=== PATIENT | female | born 1995 | race African-American/Black ===

== ENCOUNTER 2017-01-29 12:50 | Inpatient (IN) | payer OTHER ==
[~2017-01-29] VITALS: Ht 147.3 cm; Wt 51.3 kg
[~2017-01-29 12:50] MED LIST: ALBUTEROL 3 ML3 ML INH; ALBUTEROL0.09 MG/A1 INH; ALBUTEROL1.25 MG/3 INH; ALLEGRA180 MG PO; BENTYL20 MG PO; EPIPEN ADULT A0.3 MG IM; FAMOTIDINE20 M1 PO; FAMOTIDINE20 MG PO; FLEXERIL10 MG PO; IBUPROFEN600 M1 PO; MEDROL DOSEPAK1 PAC PO; NAPHCON A OPH; OMNICEF300 MG PO; ORTHO TRI-CYCLE1 TA1 PO; PATADAY2.5 ML OPH; PREDNISONE 20MG20 MG PO; PREDNISONE10 MG PO; PREDNISONE50 M1 PO; PREDNISONE50 MG PO; ROBITUSSIN W/CO10 ML PO; SYMBICORT 16010.2 GM INH; SYMBICORT 80-10.2 GM INH; SYMBICORT 80/4.1 PUF INH; TESSALON PERLE100 MG PO; TRI-PREVIFEM T1 EACH PO; VENTOLIN HFA18 GM INH; XANAX0.5 M1 PO; ZITHROMAX250 MG PO; ZOFRAN 4MG ORALL4 MG SL
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
[2017-01-29 13:47] LABS: ABSOLUTE BASOPHIL COUNT 0 /CUMM (0.0-0.2); ABSOLUTE EOSINOPHIL COUNT 0.1 /CUMM (0.0-0.7); ABSOLUTE GRANULOCYTE CT 6.6 /CUMM (1.4-6.5); ABSOLUTE LYMPH COUNT 1.3 /CUMM (1.2-3.4); ABSOLUTE MONOCYTE COUNT 0.6 /CUMM (0.10-0.60); BASOPHIL % 0.4 % (0.0-2.0); EOSINOPHIL % 0.8 % (0-5); GRANULOCYTE % 76.7 % (42.2-75.2); HEMATOCRIT 42.7 % (37-47); MEAN CORPUSCULAR HGB 28.5 PG (27.0-31.0); MEAN CORPUSCULAR HGB CONC 33.2 G/DL (33.0-37.0); MEAN CORPUSCULAR VOLUME 85.8 FL (81.0-99.0); MEAN PLATELET VOLUME 8.7 FL (7.4-10.4); PLATELET COUNT 207 /CUMM (130-400); RBC DISTRIBUTION WIDTH 13.6 % (11.5-14.5); RED BLOOD CELL CT 4.98 /CUMM (4.20-5.40); WHITE BLOOD CELL COUNT 8.6 /CUMM (4.8-10.8)
[2017-01-29] MEDS ORDERED: ALBUTEROL2.5 MG/3 M INH/SOL (14:46)
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
[2017-01-29 21:30] VITALS: BP 133/79
--- NOTE | 2017-01-29 22:16 | Admission Certification ---
Admission Certification Certification Statement - As attending physician, I certify that at the time of - admission, based on clinical presentation, severity of - symptoms, need for further diagnostic testing and - therapeutic interventions, and risk of adverse outcomes - without in-hospital treatment, in my clinical assessment, - this patient requires an acute hospital stay for a minimum - of two nights or longer. I have also considered psychsocial - factors such as support system, advanced age, financial - issues, cognitive issues, and failed out-patient treatments, - past re-admission history, safety of patient, and lack of - compliance as applicable. Specific rationale supporting this admission is: Depression and suicidal ideation.
--- NOTE | 2017-01-29 22:18 | History & Physical ---
General Information and HPI MD Statement: I have seen and personally examined MICHAEL ALVARADO and documented this H&P. The patient is a 21 year old F who presented with a patient stated chief complaint of [depression and suicidal ideation]. Source of Information: patient Exam Limitations: no limitations History of Present Illness: 21 yo F with h/o asthma, anxiety is admitted to Inpatient Psychiatry for depression and passive suicidal thoughts due to issues with her ex-boyfriend. Please refer to Psych H and P for further details. She reports her asthma has been stable, last ER visit for an exacerbation was in Jun 2016 ([facility]). She reports being admitted to [facility] for an asthma exacerbation, which was quite some time ago, and has never been intubated for the same. She follows with Dr. Livan Lozada (Db2 Developer) at [facility]. She denies chest pain, palpitations, dyspnea, GI or symptoms. She currently denies any suicidal thoughts. Allergies/Medications Allergies: Coded Allergies: nut - unspecified (Severe, ANAPHYLAXIS 01/29/17) peanut (Severe, ANAPHYLAXIS 06/18/16) Uncoded Allergies: ENVIRONMENTAL ALLERGIES (ALLERGIES TRIGGER ASTHMA 05/15/16) Home Med list Albuterol Sulfate 2.5 MG/3 ML (0.083 %) VIAL.NEB 1 Vial INH/MARVA Q4P PRN SHORTNESS OF BREATH (Reported) Albuterol Sulfate (Ventolin Hfa) 18 GM HFA.AER.AD 2 PUF INH Q4-6 PRN PRN ASTHMA Budesonide/Formoterol Fumarate (Symbicort 160-4.5 Mcg Inhaler) 10.2 GM HFA.AER.AD 2 PUF INH BID ASTHMA (Reported) Budesonide/Formoterol Fumarate (Symbicort 80-4.5 Mcg Inhaler) 10.2 GM HFA.AER.AD 2 PUF INH BID ASTHMA (Reported) Compliance With Home Meds: GOOD Past History Travel History Traveled to [place] past 21 day No Medical History Neurological: NONE EENT: allergies, ANAPHYLAXIS Cardiovascular: NONE Respiratory: asthma Gastrointestinal: NONE Hepatic: NONE Renal: NONE Musculoskeletal: NONE Psychiatric: anxiety Endocrine: NONE Blood Disorders: NONE Cancer(s): NONE 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 Paternal grandmother (Breast cancer). Psychosocial History Where do you live? Home Who Do You Live With? parent Services at Home: None Primary Language: Syriac Smoking Status: Never Smoked ETOH Use: occasional use Illicit Drug Use: denies illicit drug use Functional Ability ADLs Independent: dressing, eating, toileting, bathing. 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 Review of Systems Review of Systems Constitutional: Denies: chills, fever, malaise, weakness. EENTM: Reports: no symptoms. Cardiovascular: Denies: chest pain, orthopena, palpitations. Respiratory: Denies: cough, short of breath, sputum production, wheezing. GI: Denies: abdominal pain, diarrhea, nausea, vomiting. Genitourinary: Reports: no symptoms. Musculoskeletal: Reports: no symptoms. Skin: Reports: no symptoms. Neurological/Psychological: Reports: see HPI. All Other Systems: Reviewed and Negative Exam & Diagnostic Data Last 24 Hrs of Vital Signs/I&O Vital Signs Date Time Temp Pulse Resp B/P Pulse O2 O2 Flow FiO2 Ox Delivery Rate 01/29 1504 97.9 98 18 112/69 98 Room Air 01/29 1410 98.2 01/29 1330 99 Room Air 01/29 1254 97.7 01/29 1253 105 102/66 94 Room Air Intake & Output 01/29 1600 01/29 0800 01/29 0000 Intake Total Output Total Balance Patient 125 lb Weight Physical Exam General Appearance Alert, Oriented X3, Cooperative, No Acute Distress Skin No Rashes, No Breakdown HEENT Atraumatic, PERRLA, EOMI, Mucous Membr. moist/pink Neck Supple Cardiovascular Regular Rate, Normal S1, Normal S2, No Murmurs Lungs Clear to Auscultation, Normal Air Movement Abdomen Normal Bowel Sounds, Soft, No Tenderness Neurological Exam Findings: Normal Gait, Normal Speech, Strength at 5/5 X4 Ext, Cranial Nerves 3-12 NL, Reflexes 2+ Cranial Nerves II through XII: Grossly intact Extremities No Edema, Normal Pulses, No Tenderness/Swelling Vascular Normal Pulses, Pulses Symmetrical Last 24 Hrs of Labs/Ferny: Laboratory Tests 01/29/17 1415: Urine Opiates Screen < 100.00, Methadone Screen < 40, Barbiturate Screen < 60, Ur Phencyclidine Scrn < 6.00, Amphetamines Screen < 100, U Benzodiazepines Scrn < 85, Urine Cocaine Screen < 50, Urine Cannabis Screen < 5.00 01/29/17 1325: Anion Gap 11, Estimated GFR > 60, BUN/Creatinine Ratio 18.6, Glucose 86, Calcium 9.7, Total Bilirubin 1.1, AST 17, ALT 27, Alkaline Phosphatase 54, Total Protein 7.6, Albumin 4.2, Globulin 3.4, Albumin/Globulin Ratio 1.2, Total Beta HCG NEGATIVE, CBC w Diff NO MAN DIFF REQ, RBC 4.98, MCV 85.8, MCH 28.5, RDW 13.6, MPV 8.7, Gran % 76.7 H, Lymphocytes % 15.1 L, Monocytes % 7.0, Eosinophils % 0.8, Basophils % 0.4, Absolute Granulocytes 6.6 H, Absolute Lymphocytes 1.3, Absolute Monocytes 0.6, Absolute Eosinophils 0.1, Absolute Basophils 0, PUBS MCHC 33.2, Serum Alcohol < 10.0 01/29/17 1306: Urine Test Cancelled Diagnostic Data EKG Results -- CXR Results -- Assessment/Plan Assessment: 21 yo F admitted to Inpatient Psychiatry for depression and passive suicidal thoughts. Will defer management to Psychiatrist. For her asthma, we will continue symbicort and albuterol as needed. DVT prophylaxis - low risk, early ambulation. As Ranked By This Provider Problem List: 1. Asthma 2. Major depressive disorder Miscellaneous Miscellaneous Documentation Attending Case Discussed With: JOSE VALENZUELA,NORA Primary Care Physician: PATIENT HAS NO PRIMARY CARE DR Patient sees these Specialists Dr. Livan lozada (Db2 Developer at [facility]) Level of Patient Care: ALBERT Mcgill Attending Review Statement Attending Statement Attending MD Statement: examined this patient
[2017-01-30 07:47] VITALS: BP 133/91
[2017-01-30 11:59] VITALS: BP 121/84
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
[2017-01-30 15:50] VITALS: BP 100/59
[2017-01-30 20:09] VITALS: BP 124/80
[2017-01-31 07:58] VITALS: BP 118/71
[2017-01-31 12:30] VITALS: BP 136/82
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
[2017-01-31 16:01] VITALS: BP 104/72
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
[2017-01-31 19:37] VITALS: BP 97/72
[2017-02-01 07:33] VITALS: BP 119/72
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
--- NOTE | 2017-02-01 17:05 | DISCHARGE SUMMARY REPORT-PSYCH ---
Visit Information Visit Dates/Diagnosis' Admission Date: 01/29/17 Discharge Date: 02/01/17 Reason for Admission: "I just wanted to clear my head." Psy Discharge Primary Diag: Adjustment Disorder (depressed/nonsuicidal) Psy Discharge Secondary Diag: hx of Asthma Hospital Course Significant Lab Findings: glucose = 86; WBC = 8.6, lymph = 15.1%, gran = 76.7%, gran abs = 6.6%; ROXANNE = less than 10.0; urine for drugs of abuse--negative (for details of all normal range laboratory data, see the electronic medical record) Course Complications: none Consultations: patient was seen for an admission medical H&P by Konrad Lester M.D., and followed medically during this [facility] by [facility] medical attending staff; there were no other consultation during admission Allergies: Coded Allergies: nut - unspecified (Severe, ANAPHYLAXIS 01/29/17) peanut (Severe, ANAPHYLAXIS 06/18/16) Uncoded Allergies: ENVIRONMENTAL ALLERGIES (ALLERGIES TRIGGER ASTHMA 05/15/16) Hospital Course/TX Response: Patient rapidly improved on [facility], consistently denying active suicidal or homicidal ideation in hospital, or prior to admission; she had been upset over break-up with an unfaithful boyfriend who had gotten her (she had an elective in 12/2016) but was not contemplating any violent action. Patient's affect and mood rapidly improve, and she did not require any regular or PRN psychotropic medication during her stay. At time of discharge, patient was euthymic and eager to get back to work and school while continuing to reside happily with her mother. Patient displayed no ambivalence with regard to permanently terminating relationship with boyfriend. Discharge HBIPS - Tobacco Use Treatment Offered Post DC Medications Offered: NA-No Tob Use >30 days Post DC Tobacco Treatment Plan: NA-No Tobacco use >30days - EtOH/Drug Use D/O Treatment Offered Post DC Medications Offered: NA-No EtOH/Drug Use D/O Post DC EtOH/SubAbuse TX Plan: NA-No EtOH/Drug Use D/O Metabolic Screening - Screen if on a Neuroleptic Medication - Metabolic screening should include: - Blood Pressure, BMI, Glucose or Hgb A1c, & a - Lipid profile from within the past 365 days. Metabolic Screening ([X]) Not Applicable, patient not on a neuroleptic. OR () Patient on a neuroleptic(s) . Enter below results for Glucose or Hemoglobin A1C, and lipid panel if obtained during the last 365 days. BMI: 23.600 Blood Pressure: 119/72 Laboratory Results (If applicable): Discharge Instructions General Discharge Information Discharge Medications: Discharge Medications (dose, route, frequency, indications): none Multiple Neuroleptics: ([X]) Not Applicable OR Document below three failed attempts at monotherapy, or a plan to taper to monotherapy, or augmentation of Clozapine. () Patient's Diet: regular Patient's Activity: without restrictions DC Disposition: to return home with mother Recommendations: I went over with patient the symptoms of clinical depression and warned her that despite her being symptom-free at time of discharge she might be vulnerable to a depressive episode in the coming months and the increased relative risks of this occurring given the physiologic effects of her and its termination ( "post-" depression). Referred To: Patient was referred directly to [facility], beginning 02/05/2017 at 1pm. She was also informed about the availability of the services of [facility] and how to access them, if needed. Copies To: AUGUSTO MAN LCSW
== END 2017-02-01 12:58 | DRG 754 ==
LOC: ERH 12:50 → CP SOUTH 17:13 → ERHI 17:13 → CP SOUTH 20:55
PROVIDERS: Physician Assistant; ADMIT Psychiatry & Neurology Addiction Medicine
DX: F43.21 Adjustment disorder with depressed mood (principal); J45.909 Unspecified asthma, uncomplicated
CPT/HCPCS: 80307; 81025; G0480; J3490

== ENCOUNTER 2017-03-07 20:07 | Emergency (ER) | payer OTHER ==
[~2017-03-07 20:07] MED LIST changes: +ALBUTEROL2.5 MG/3 M INH/SOL
--- NOTE | 2017-03-07 20:35 | ED GI/GU/ABDOMINAL COMPLAINT ---
History of Present Illness General Chief Complaint: Abdominal Pain/Flank Pain Stated Complaint: ABD PAIN, VOMITING PER PT Source: patient Exam Limitations: no limitations Vital Signs & Intake/Output Vital Signs & Intake/Output Vital Signs Date Time Temp Pulse Resp B/P B/P Pulse O2 O2 Flow FiO2 Mean Ox Delivery Rate 03/07 2011 98.5 88 20 121/74 Allergies Coded Allergies: nut - unspecified (Severe, ANAPHYLAXIS 01/29/17) peanut (Severe, ANAPHYLAXIS 06/18/16) Uncoded Allergies: ENVIRONMENTAL ALLERGIES (ALLERGIES TRIGGER ASTHMA 05/15/16) Reconcile Medications Albuterol Sulfate 2.5 MG/3 ML (0.083 %) VIAL.NEB 1 Vial INH/MARVA Q4P PRN SHORTNESS OF BREATH (Reported) Albuterol Sulfate (Ventolin Hfa) 18 GM HFA.AER.AD 2 PUF INH Q4-6 PRN PRN ASTHMA Budesonide/Formoterol Fumarate (Symbicort 80-4.5 Mcg Inhaler) 10.2 GM HFA.AER.AD 2 PUF INH BID ASTHMA (Reported) Budesonide/Formoterol Fumarate (Symbicort 160-4.5 Mcg Inhaler) 10.2 GM HFA.AER.AD 2 PUF INH BID ASTHMA (Reported) Dicyclomine Hydrochloride (Bentyl) 10 MG CAPSULE 1 CAP PO TID abd pain Ondansetron (Zofran Odt) 4 MG TAB.RAPDIS 1 TAB SL TID nausea Triage Note: PER PT ABD PAIN SOINCE THIS AFTERNOON ASSOC WITH VOMITTING X 6 AND DIARRHEA. CURRENTLY ON MENSES. Triage Nurses Notes Reviewed? yes ? N Is pt currently ? No Onset: Gradual Duration: hour(s): (2) Timing: remote history Quality/Severity: cramping, vomiting Severity Numbers: 8 Location: suprapubic Radiation: no radiation Activities at Onset: none Prior Abdominal Problems: similar symptoms Sexually Active: Yes Last Time You Were Sexual: less than 2 months ago Sexual Orientation: Heterosexual No Modifying Factors: none HPI: Patient is a 21-year-old female with history of asthma, recent D&C in December presenting to the emergency department with chief complaint of lower bowel pain that started approximately 2 hours prior to arrival. She describes the pain as cramping in nature. She's had associated nausea vomiting and diarrhea as well for the past 2 hours. She had mild cramping earlier in the day which is consistent with her normal menstrual cramping. Denies any fevers or chills. Denies trying to take anything by mouth after onset of symptoms. No sick contacts or recent travel. Denies recent antibiotic use. She reports that after she had the D&C in December a few days after she developed a fever which eventually subsided. No issues since then. Denies any urinary frequency or urgency or dysuria. No hematuria. Denies any blood in stool or the vomit. (MOOK FLORES) Past History Travel History Traveled to [place] past 21 day No Medical History Any Pertinent Medical History? see below for history Neurological: NONE EENT: allergies Cardiovascular: NONE Respiratory: asthma Gastrointestinal: NONE Hepatic: NONE Renal: NONE Musculoskeletal: NONE Psychiatric: anxiety Endocrine: NONE Blood Disorders: NONE Cancer(s): NONE FITTING SUPERVISOR/Reproductive: OVARIAN CYST History of MRSA: No History of VRE: No History of CDIFF: No Influenza Vaccine: 09/24/11 Surgical History Surgical History: appendectomy Psychosocial History Who do you live with Mother Services at Home None What is your primary language Slovenian Tobacco Use: Never used Family History Family History, If Any: Maternal grandfather (Stroke). Paternal grandmother (Breast cancer). Hx Contributory? No (MOOK FLORES) Review of Systems Review of Systems Constitutional: Reports: no symptoms. Comments Review of systems: See HPI, All other systems negative. Constitutional, no chills fever or weight loss HEENT: No visual changes no sore throat no congestion Cardiovascular: No chest pain ,palpitation , orthopnea or ankle swelling Skin, no jaundice no rashes Respiratory: No dyspnea cough sputum or hemoptysis GI: Positive nausea, vomiting, diarrhea : No dysuria No hematuria Muscle skeletal: no back pain, no neck pain, Neurologic: No numbness no confusion Psych: No stress anxiety or depression,. Heme/endocrine: No bruising no bleeding no polyuria or polydipsia Immunology: No splenectomy or history of AIDS (MOOK FLORES) Physical Exam Physical Exam General Appearance: alert, awake, anxious, mild distress Gastrointestinal: normal bowel sounds, soft, tenderness Comments: Well-developed well-nourished person in no acute distress HEENT: . Nose is atraumatic. Pharynx normal. No swelling or edema. Moist oromucosa. Neck: Supple, no lymphadenopathy, normal range of motion without pain or tenderness Back: Nontender, no CVA tenderness. Cardiovascular: Regular rate and rhythms no murmurs rubs or gallops, normal JVP Respiratory: Chest nontender. No respiratory distress.breath sounds clear to auscultation bilaterally Abdomen: Soft, tentative palpation in the suprapubic region bilaterally, mild guarding, no rebound tenderness, nondistended, no appreciable organomegaly. Normal bowel sounds. No ascites Extremity: No edema Neuro: Alert oriented x3 Skin: No appreciable rash on exposed skin, skin is warm and dry. Psych: Anxious Core Measures ACS in differential dx? No Severe Sepsis Present: No Septic Shock Present: No (ETHEL SAMUEL,MOOK) Progress Differential Diagnosis: biliary colic, bowel obstruction, diverticulitis, ectopic , gastritis, hepatitis, ischemic bowel, ovarian cyst, ovarian torsion, pancreatitis, UTI/pyelo, OVARIAN TORSION, OVARIAN CYSTS, PANCREATITIS, DEHYDRATION, ELECTROLYTE ABNORMALITY Plan of Care: Orders Procedure Date/time Status URINE 03/07 2029 Complete URINALYSIS 03/07 2029 Complete LIPASE 03/07 2029 Complete LACTIC ACID 03/07 2029 Complete COMPREHENSIVE METABOLIC PANEL 03/07 2029 Complete CBC WITHOUT DIFFERENTIAL 03/07 2029 Complete Laboratory Tests 03/07/172221: Urinalysis MANY H, Urine Color YEL, Urine Clarity CLDY H, Urine pH 5.5, Ur Specific [place] >= 1.030, Urine Protein 30 H, Urine Ketones 15 H, Urine Nitrite NEG, Urine Bilirubin NEG, Urine Urobilinogen 0.2, Ur Leukocyte Esterase NEG, Ur Microscopic SEDIMENT EXAMINED, Urine RBC 1-3, Urine WBC 1-3 H, Ur Epithelial Cells FEW, Urine Bacteria FEW H, Urine Mucus FEW, Urine Hemoglobin MOD H, Urine Glucose NEG, Urine Test NEGATIVE 03/07/172045: Anion Gap 13, Estimated GFR > 60, BUN/Creatinine Ratio 27.5 H, Glucose 86, Lactic Acid 0.7, Calcium 9.3, Total Bilirubin 0.8, AST 19, ALT 30, Alkaline Phosphatase 45, Total Protein 7.5, Albumin 4.3, Globulin 3.2, Albumin/Globulin Ratio 1.3, Lipase 313 H, CBC w Diff NO MAN DIFF REQ, RBC 4.88, MCV 86.3, MCH 28.5, RDW 13.8, MPV 8.5, Gran % 62.9, Lymphocytes % 25.3, Monocytes % 8.1, Eosinophils % 3.3, Basophils % 0.4, Absolute Granulocytes 6.4, Absolute Lymphocytes 2.6, Absolute Monocytes 0.8 H, Absolute Eosinophils 0.3, Absolute Basophils 0, PUBS MCHC 33.1 Diagnostic Imaging: Viewed by Me: Ultrasound. Discussed w/RAD: Ultrasound. Radiology Impression: SERVICE DATE: 03/07/17 EXAM TYPE: US - US- TRANSVAGINAL EXAMINATION: US TRANSVAGINAL CLINICAL INFORMATION: Abdominal and pelvic pain COMPARISON: None TECHNIQUE: Transvaginal imaging by the tin flipper FINDINGS: The uterus is 6.7 x 3.4 x 4.4 cm. Endometrial canal 3 mm normal. Cervical length 2.6 cm. The right ovary is 2.8 x 3.4 x 2.2 cm. Volume 10.7 mL normal appearing. Left ovary is 3 x 2.6 x 2 cm. Volume 80 mL. Normal- appearing. Normal ovarian vascularity bilaterally. No free fluid or obvious adnexal mass. IMPRESSION: Unremarkable transabdominal pelvic ultrasound. Ovaries are normal appearing with normal Ovarian flow. No free fluid or obvious adnexal mass. Initial ED EKG: none Hand-Off Endorsed To: MARIELLA BARGER Endorsed Time: 2100 Pending: labs, ultrasound Comments: 03/07/2017 8:40:38 PM on arrival patient is afebrile in mild distress with reproducible pain in the suprapubic region bilaterally. Patient reports an onset of nausea vomiting and diarrhea. Sounds very viral, cannot exclude ovarian torsion as patient does have history of ovarian cysts. Initial over transvaginal ultrasound to rule out torsion. We'll obtain blood work to check electrolytes. Patient be hydrated with fluids, given Toradol for pain and Zofran for nausea. 03/07/2017 9:01:16 PM patient will be signed out to JIMMIE Santiago pending lab work and reevaluation of patient once patient is medicated. (MOOK FLORES) Radiology Impression: SERVICE DATE: 03/07/17 EXAM TYPE: US - US- TRANSVAGINAL EXAMINATION: US TRANSVAGINAL CLINICAL INFORMATION: Abdominal and pelvic pain COMPARISON: None TECHNIQUE: Transvaginal imaging by the tin flipper FINDINGS: The uterus is 6.7 x 3.4 x 4.4 cm. Endometrial canal 3 mm normal. Cervical length 2.6 cm. The right ovary is 2.8 x 3.4 x 2.2 cm. Volume 10.7 mL normal appearing. Left ovary is 3 x 2.6 x 2 cm. Volume 80 mL. Normal- appearing. Normal ovarian vascularity bilaterally. No free fluid or obvious adnexal mass. IMPRESSION: Unremarkable transabdominal pelvic ultrasound. Ovaries are normal appearing with normal Ovarian flow. No free fluid or obvious adnexal mass. (MARIELLA BARGER) Departure Departure Disposition: HOME OR SELF CARE Condition: Stable Clinical Impression Primary Impression: Nausea and vomiting Qualifiers: Vomiting type: unspecified Vomiting Intractability: non-intractable Qualified Code: R11.2 - Nausea with vomiting, unspecified Secondary Impressions: Diarrhea Qualifiers: Diarrhea type: unspecified type Qualified Code: R19.7 - Diarrhea, unspecified Referrals: PATIENT HAS NO PRIMARY CARE DR (PCP/Family) Departure Forms: Customer Survey General Discharge Information (MOOK FLORES) Departure Additional Instructions: Take Bentyl and Zofran ODT as prescribed. Follow-up with your primary care doctor. Return if any concerns. Drink plenty of fluids. Please go over all results of today's visit with your primary care doctor. Contact your primary care doctor to let them know you were here in the emergency room. There may be nonspecific findings which may not be related to your visit today here in the emergency room but may require further evaluation and chronic monitoring by your primary care doctor. If you had a laceration today the chance of foreign body always remains. You should follow-up with your primary care doctor for recheck in 3-5 days for a wound check. If you had an x-ray done there is a chance that a fracture could have been missed on initial read and you should follow-up with your primary care doctor for repeat x-rays if symptoms persist. If your blood pressure was elevated here in the emergency room please have rechecked by her primary care doctor within the next 48 hours by your primary care doctor. If you were prescribed a narcotic here in the emergency room or any type of controlled substances you're not allowed to drive while taking this medication or operate any type of heavy machinery. Narcotics can make you feel lightheaded dizziness nausea and can cause constipation. You may need to picking supervisor a stool softener. Thank you for choosing [facility] emergency room. Please return to the emergency room immediately if you have any other concerns worsening of symptoms. Prescriptions: Current Visit Scripts Ondansetron (Zofran Odt) 1 TAB SL TID #10 TAB Dicyclomine Hydrochloride (Bentyl) 1 CAP PO TID #20 CAP (MARIELLA BARGER) PA/ANGLE SHEAR OPERATOR Co-Sign Statement Statement: ED Attending supervision documentation- [] I saw and evaluated the patient. I have also reviewed all the pertinent lab results and diagnostic results. I agree with the findings and the plan of care as documented in the PA's/ANGLE SHEAR OPERATOR's documentation. [X] I have reviewed the ED Record and agree with the PA's/ANGLE SHEAR OPERATOR's documentation. [] Additions or exceptions (if any) to the PAs/ANGLE SHEAR OPERATOR's note and plan are summarized below: [] (MARY VALENZUELA,KENDALL Godoy)
[2017-03-07 20:52] LABS: ABSOLUTE BASOPHIL COUNT 0 /CUMM (0.0-0.2); ABSOLUTE EOSINOPHIL COUNT 0.3 /CUMM (0.0-0.7); ABSOLUTE GRANULOCYTE CT 6.4 /CUMM (1.4-6.5); ABSOLUTE LYMPH COUNT 2.6 /CUMM (1.2-3.4); ABSOLUTE MONOCYTE COUNT 0.8 /CUMM (0.10-0.60); BASOPHIL % 0.4 % (0.0-2.0); EOSINOPHIL % 3.3 % (0-5); GRANULOCYTE % 62.9 % (42.2-75.2); HEMATOCRIT 42.2 % (37-47); MEAN CORPUSCULAR HGB 28.5 PG (27.0-31.0); MEAN CORPUSCULAR HGB CONC 33.1 G/DL (33.0-37.0); MEAN CORPUSCULAR VOLUME 86.3 FL (81.0-99.0); MEAN PLATELET VOLUME 8.5 FL (7.4-10.4); PLATELET COUNT 193 /CUMM (130-400); RBC DISTRIBUTION WIDTH 13.8 % (11.5-14.5); RED BLOOD CELL CT 4.88 /CUMM (4.20-5.40); WHITE BLOOD CELL COUNT 10.2 /CUMM (4.8-10.8)
--- NOTE | 2017-03-07 21:37 | ULTRASOUND REPORT ---
EXAMINATION: US TRANSVAGINAL CLINICAL INFORMATION: Abdominal and pelvic pain COMPARISON: None TECHNIQUE: Transvaginal imaging by the ancillary services manager FINDINGS: The uterus is 6.7 x 3.4 x 4.4 cm. Endometrial canal 3 mm normal. Cervical length 2.6 cm. The right ovary is 2.8 x 3.4 x 2.2 cm. Volume 10.7 mL normal appearing. Left ovary is 3 x 2.6 x 2 cm. Volume 80 mL. Normal-appearing. Normal ovarian vascularity bilaterally. No free fluid or obvious adnexal mass. IMPRESSION: Unremarkable transabdominal pelvic ultrasound. Ovaries are normal appearing with normal Ovarian flow. No free fluid or obvious adnexal mass.
[2017-03-07] MEDS ORDERED: ZOFRAN ODT4 M1 SL (22:48)
[2017-03-07] MEDS ORDERED: BENTYL10 M1 PO (22:48)
[2017-03-07 23:13] VITALS: BP 120/74
== END 2017-03-07 23:14 ==
LOC: ERH 20:07
PROVIDERS: Physician Assistant
DX: R11.2 Nausea with vomiting, unspecified (principal); R19.7 Diarrhea, unspecified
CPT/HCPCS: 81001; 81025; 96374; 96375; J1885; J2405

== ENCOUNTER 2017-04-03 21:12 | Emergency (ER) | payer OTHER ==
[~2017-04-03] VITALS: Ht 147.3 cm; Wt 49.9 kg
[~2017-04-03 21:12] MED LIST changes: +BENTYL10 M1 PO; +ZOFRAN ODT4 M1 SL
[2017-04-03 21:36] VITALS: BP 108/73
[2017-04-03] MEDS ORDERED: BROMFED DM COU118 M1 PO (22:20)
[2017-04-03] MEDS ORDERED: ALBUTEROL2.5 MG/3 M INH/SOL (22:20)
[2017-04-03] MEDS ORDERED: SYMBICORT 80-10.2 GM INH (22:20)
[2017-04-03] MEDS ORDERED: PROAIR HFA8.5 GM INH (22:20)
--- NOTE | 2017-04-03 22:20 | ED DYSPNEA/ASTHMA COMPLAINT ---
History of Present Illness General Chief Complaint: Wheezing/Asthma Stated Complaint: NEEDS ASTHMA TREATMENT, RAN OUT OF MEDS Source: patient, old records Exam Limitations: no limitations Vital Signs & Intake/Output Vital Signs & Intake/Output Vital Signs Date Time Temp Pulse Resp B/P B/P Pulse O2 O2 Flow FiO2 Mean Ox Delivery Rate 04/038 99 04/036 98.8 86 24 108/73 97 Room Air Allergies Coded Allergies: nut - unspecified (Severe, ANAPHYLAXIS 04/03/17) peanut (Severe, ANAPHYLAXIS 04/03/17) Uncoded Allergies: ENVIRONMENTAL ALLERGIES (ALLERGIES TRIGGER ASTHMA 05/15/16) Reconcile Medications Albuterol Sulfate 2.5 MG/3 ML (0.083 %) VIAL.NEB 1 Vial INH/MARVA Q4P PRN SHORTNESS OF BREATH (Reported) Albuterol Sulfate (Ventolin Hfa) 18 GM HFA.AER.AD 2 PUF INH Q4-6 PRN PRN ASTHMA Albuterol Sulfate (Proair Hfa) 90 MCG HFA.AER.AD 2 PUF INH Q4-6 PRN PRN asthma Albuterol Sulfate 2.5 MG/3 ML (0.083 %) VIAL.NEB 1 Vial INH/MARVA Q4P PRN wheezing Brompheniramine/Pseudoephed/Dm (Bromfed Dm Cough Syrup) 2 MG-30 MG-10 MG/5 ML SYRUP 10 ML PO Q4-6 PRN PRN cough Budesonide/Formoterol Fumarate (Symbicort 80-4.5 Mcg Inhaler) 10.2 GM HFA.AER.AD 2 PUF INH BID ASTHMA (Reported) Budesonide/Formoterol Fumarate (Symbicort 160-4.5 Mcg Inhaler) 10.2 GM HFA.AER.AD 2 PUF INH BID ASTHMA (Reported) Budesonide/Formoterol Fumarate (Symbicort 80-4.5 Mcg Inhaler) 80 MCG-4.5 MCG/ ACTUATION HFA.AER.AD 2 PUF INH BID asthma Dicyclomine Hydrochloride (Bentyl) 10 MG CAPSULE 1 CAP PO TID abd pain Ondansetron (Zofran Odt) 4 MG TAB.RAPDIS 1 TAB SL TID nausea Triage Note: TRIAGE: PT TO ER WITH FRIEND C/C ASTHMA FLARE UP. RAN OUT OF INHALERS/NEBULIZERS 1 WK AGO. COMPLAINS OF CHEST PAIN ONLY WITH COUGHING. HAS DRY COUGH AT TRIAGE. Triage Nurses Notes Reviewed? yes Onset: Gradual Duration: day(s): (2), constant Timing: recent history Severity: mild, moderate Activities at Onset: activity Prior Episodes/Possible Cause: frequent episodes Associated Symptoms: cough : No Patient currently breastfeeds: No HPI: 21-year-old female with history of asthma presents requesting a breathing treatment. She states she ran out of her nebulizer machine and inhalers last week. She states for the past 3 days she's had chest tightness and wheezing and a nonproductive cough. No fever no chills. The patient denies abdominal pain nausea vomiting sore throat and rhinorrhea congestion no modifying factors or associated symptoms otherwise. She does not smoke. (ВИАН KAUR) Past History Travel History Traveled to [place] past 21 day No Medical History Any Pertinent Medical History? see below for history Neurological: NONE EENT: allergies Cardiovascular: NONE Respiratory: asthma Gastrointestinal: NONE Hepatic: NONE Renal: NONE Musculoskeletal: NONE Psychiatric: anxiety Endocrine: NONE Blood Disorders: NONE Cancer(s): NONE REPAIRER SHOE STICKS/Reproductive: OVARIAN CYST History of MRSA: No History of VRE: No History of CDIFF: No Surgical History Surgical History: appendectomy Psychosocial History Who do you live with Mother Services at Home None What is your primary language Grenadian Tobacco Use: Never used ETOH Use: occasional use Illicit Drug Use: denies illicit drug use Family History Family History, If Any: Maternal grandfather (Stroke). Paternal grandmother (Breast cancer). Hx Contributory? No (ИВАН KAUR) Review of Systems Review of Systems Constitutional: Reports: see HPI. All Other Systems: Reviewed and Negative Comments Review of systems: See HPI, All other systems negative. Constitutional, no chills no fever, no malaise HEENT: no sore throat no congestion, no ear pain Cardiovascular: No chest pain , no palpitation , no orthopnea Skin: no rashes, no change in skin Respiratory: dyspnea cough no sputum no hemoptysis GI: No nausea no vomiting, no diarrhea, no bloating/constipation : No dysuria No hematuria, Muscle skeletal: No joint pain, no joint swelling, no back pain, no neck pain, Neurologic: no headache Psych: No stress Heme/endocrine: No bruising Immunology: No lymphadenopathy (ИВАН KAUR) Physical Exam Physical Exam General Appearance: well developed/nourished, no apparent distress, alert, awake Respiratory: wheezing (int expiratory wheeze) Comments: Well-developed well-nourished patient in no apparent distress. HEENT: Atraumatic, extraocular motion intact pharynx is normal limits no rhinorrhea no congestion Neck: Supple, FROM Back: FROM Cardiovascular: Regular rate and rhythms no murmurs rubs or gallops, Respiratory: Chest nontender.There were no bony deformities, no asymmetry. No respiratory distress. Patient speaking in full complete sentences. Intermittent bilateral expiratory wheeze Extremities: full range of motion Neuro: awake, alert, and oriented to person, place and time. There were no obvious focal neurologic abnormalities. Skin: Warm & dry;No appreciable rash on exposed skin Psych: Mood affect normal, normal memory normal judgment. Core Measures ACS in differential dx? No Severe Sepsis Present: No Septic Shock Present: No (ИВАН KAUR) Progress Differential Diagnosis: asthma, bronchitis, pericarditis, pneumonia, pneumothorax Plan of Care: Current Medications Sig/Celestina Start time Last Medication Dose Stop Time Status Admin Albuterol Sulfate 3 ML ONCE ONE 04/03 2215 UNVr (Proventil) 04/03 2216 Ipratropium [place] 2.5 ML ONCE ONE 04/03 2215 UNVr (Atrovent) 04/03 2216 DuoNeb ordered Patient with improvement in symptoms after breathing treatment I discussed with the patient at length all of their results. I had an extensive conversation regarding need for close follow up with their primary care physician this week as well as return precautions. I answered all of their questions, they feel comfortable with the plan and follow-up care. I discussed with the patient/family the medications that they will receive. I gave them signs and symptoms that could indicate an adverse reaction. I have advised them to limit their activities until they can see how they respond to the medication. (ИВАН KAUR) Initial ED EKG: none (ИВАН KAUR) Departure Departure Time of Disposition: 2214 Disposition: HOME OR SELF CARE Condition: Stable Clinical Impression Primary Impression: Asthma exacerbation Referrals: PATIENT HAS NO PRIMARY CARE DR (PCP/Family) Departure Forms: Customer Survey General Discharge Information Prescriptions: Current Visit Scripts Budesonide/Formoterol Fumarate (Symbicort 80-4.5 Mcg Inhaler) 2 PUF INH BID #10.2 GM Albuterol Sulfate (Proair Hfa) 2 PUF INH Q4-6 PRN PRN asthma #1 INHAL Brompheniramine/Pseudoephed/Dm (Bromfed Dm Cough Syrup) 10 ML PO Q4-6 PRN PRN cough #120 ML Albuterol Sulfate 1 Vial INH/MARVA Q4P PRN wheezing #50 Vial (ИВАН KAUR) PA/CYLINDER HANDLER Co-Sign Statement Statement: ED Attending supervision documentation- [] I saw and evaluated the patient. I have also reviewed all the pertinent lab results and diagnostic results. I agree with the findings and the plan of care as documented in the PA's/CYLINDER HANDLER's documentation. [X] I have reviewed the ED Record and agree with the PA's/CYLINDER HANDLER's documentation. [] Additions or exceptions (if any) to the PAs/CYLINDER HANDLER's note and plan are summarized below: [] (MAHSA VALENZUELA,SERVANDO Hay) Critical Care Note Critical Care Note Critical Care Time: non-applicable (ИВАН KAUR)
== END 2017-04-03 22:36 ==
LOC: ERH 21:12
DX: J45.901 Unspecified asthma with (acute) exacerbation (principal)
CPT/HCPCS: 1263; 1395

== ENCOUNTER 2017-04-13 00:17 | Emergency (ER) | payer OTHER ==
[~2017-04-13] VITALS: Ht 147.3 cm; Wt 49.9 kg
[~2017-04-13 00:17] MED LIST changes: +BROMFED DM COU118 M1 PO; +PROAIR HFA8.5 GM INH
[2017-04-13 00:27] VITALS: BP 111/82
--- NOTE | 2017-04-13 00:33 | ED SKIN/ALLERGY COMPLAINT ---
History of Present Illness General Chief Complaint: Allergy Symptoms Stated Complaint: ? ALLERGIC REACTION,EYE SWELLING ? SOURCE Source: patient, old records Exam Limitations: no limitations Vital Signs & Intake/Output Vital Signs & Intake/Output Vital Signs Date Time Temp Pulse Resp B/P B/P Pulse O2 O2 Flow FiO2 Mean Ox Delivery Rate 04/13 0027 98.3 89 18 111/82 96 Room Air Allergies Coded Allergies: nut - unspecified (Severe, ANAPHYLAXIS 04/13/17) peanut (Severe, ANAPHYLAXIS 04/13/17) Uncoded Allergies: ENVIRONMENTAL ALLERGIES (ALLERGIES TRIGGER ASTHMA 05/15/16) Reconcile Medications Albuterol Sulfate 2.5 MG/3 ML (0.083 %) VIAL.NEB 1 Vial INH/MARVA Q4P PRN SHORTNESS OF BREATH (Reported) Albuterol Sulfate (Ventolin Hfa) 18 GM HFA.AER.AD 2 PUF INH Q4-6 PRN PRN ASTHMA Albuterol Sulfate (Proair Hfa) 90 MCG HFA.AER.AD 2 PUF INH Q4-6 PRN PRN asthma Albuterol Sulfate 2.5 MG/3 ML (0.083 %) VIAL.NEB 1 Vial INH/MARVA Q4P PRN wheezing Brompheniramine/Pseudoephed/Dm (Bromfed Dm Cough Syrup) 2 MG-30 MG-10 MG/5 ML SYRUP 10 ML PO Q4-6 PRN PRN cough Budesonide/Formoterol Fumarate (Symbicort 80-4.5 Mcg Inhaler) 10.2 GM HFA.AER.AD 2 PUF INH BID ASTHMA (Reported) Budesonide/Formoterol Fumarate (Symbicort 160-4.5 Mcg Inhaler) 10.2 GM HFA.AER.AD 2 PUF INH BID ASTHMA (Reported) Budesonide/Formoterol Fumarate (Symbicort 80-4.5 Mcg Inhaler) 80 MCG-4.5 MCG/ ACTUATION HFA.AER.AD 2 PUF INH BID asthma Dicyclomine Hydrochloride (Bentyl) 10 MG CAPSULE 1 CAP PO TID abd pain Ketotifen Fumarate (Alaway) 0.025 % (0.035 %) DROPS 1 GTT OPH BID ALLERGIC CONJUNCTIVITIS Ondansetron (Zofran Odt) 4 MG TAB.RAPDIS 1 TAB SL TID nausea Triage Note: TRIAGE: PATIENT TO ER FROM HOME REPORTING APPROX 2230 TONIGHT NOTED W/ BILATERAL EYE IRRITATION, REDNESS/ SWELLING AND "THROAT FEELS ITCHY." HX PEANUTS ALLERGY THOUGH DENIES EXPOSURE TO PEANUTS STATES "I ATE A 3 CHEESE OMID SAUCE THAT I'VE NEVER HAD BUT NOTHING ELSE NEW." DENIES ANY RASH/ HIVES. SPEECH CLEAR, NO ACUTE DISTRESS NOTED. AIRWAY PATENT. DENIES SOB. Triage Nurses Notes Reviewed? yes : No Patient currently breastfeeds: No HPI: Patient ate pasta tonight and then shortly thereafter both of her eyes began to swell up and begin itch. Patient states that originally her throat felt scratchy but that has subsequently resolved. There is no difficulty breathing or swallowing. There are no fevers or chills. No blurry vision. There is no pain. Similar symptoms in the past when she has had allergic reactions. Past History Travel History Traveled to [place] past 21 day No Medical History Any Pertinent Medical History? 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 Paternal grandmother (Breast cancer). Hx Contributory? No Review of Systems Review of Systems Constitutional: Reports: no symptoms. EENTM: Reports: see HPI, eye tearing. Respiratory: Reports: no symptoms. Cardiovascular: Reports: no symptoms. GI: Reports: no symptoms. Musculoskeletal: Reports: no symptoms. Skin: Reports: no symptoms. Neurological/Psychological: Reports: no symptoms. Immunologic/Allergic: Reports: no symptoms. Physical Exam Physical Exam General Appearance: well developed/nourished, alert, awake, anxious, mild distress Head: atraumatic, normal appearance Eyes: Bilateral: PERRL, EOMI, other (SWOLLEN). Ears, Nose, Throat: normal pharynx, normal ENT inspection, hearing grossly normal Neck: normal inspection, supple, full range of motion Respiratory: normal breath sounds, chest non-tender, no respiratory distress, lungs clear Cardiovascular: regular rate/rhythm, normal peripheral pulses Neurologic/Psych: no motor/sensory deficits, awake, alert, oriented x 3, normal gait, normal mood/affect Progress Differential Diagnosis: allergic reaction, anaphylaxis, angioedema Plan of Care: Current Medications Sig/Celestina Start time Last Medication Dose Stop Time Status Admin Diphenhydramine HCl 25 MG ONCE ONE 04/13 45 UNVr (Benadryl) 04/13 46 Departure Departure Disposition: HOME OR SELF CARE Condition: Stable Clinical Impression Primary Impression: Allergic conjunctivitis Referrals: PATIENT HAS NO PRIMARY CARE DR (PCP/Family) Departure Forms: Customer Survey General Discharge Information Prescriptions: Current Visit Scripts Ketotifen Fumarate (Alaway) 1 GTT OPH BID #10 ML
[2017-04-13] MEDS ORDERED: ALAWAY10 ML OPH (00:51)
== END 2017-04-13 01:15 ==
LOC: ERH 00:17
DX: H10.13 Acute atopic conjunctivitis, bilateral (principal)

== ENCOUNTER 2017-04-19 21:03 | Emergency (ER) | payer OTHER ==
[~2017-04-19 21:03] MED LIST changes: +ALAWAY10 ML OPH
--- NOTE | 2017-04-19 21:14 | ED SKIN/ALLERGY COMPLAINT ---
History of Present Illness General Chief Complaint: Allergy Symptoms Stated Complaint: ALLERGIC REACTION, ITCHY THROAT/EYES Source: patient, old records Exam Limitations: no limitations Vital Signs & Intake/Output Vital Signs & Intake/Output Vital Signs Date Time Temp Pulse Resp B/P B/P Pulse O2 O2 Flow FiO2 Mean Ox Delivery Rate 04/19 2215 97.5 72 18 132/65 100 Room Air Room Air 04/19 2110 79 22 113/78 97 Room Air Allergies Coded Allergies: nut - unspecified (Severe, ANAPHYLAXIS 04/13/17) peanut (Severe, ANAPHYLAXIS 04/13/17) Uncoded Allergies: ENVIRONMENTAL ALLERGIES (ALLERGIES TRIGGER ASTHMA 05/15/16) Reconcile Medications Albuterol Sulfate (Proair Hfa) 90 MCG HFA.AER.AD 2 PUF INH Q4-6 PRN PRN asthma Albuterol Sulfate 2.5 MG/3 ML (0.083 %) VIAL.NEB 1 Vial INH/MARVA Q4P PRN wheezing Budesonide/Formoterol Fumarate (Symbicort 80-4.5 Mcg Inhaler) 80 MCG-4.5 MCG/ ACTUATION HFA.AER.AD 2 PUF INH BID asthma Fluconazole (Diflucan) 150 MG TABLET 1 TAB PO ONCE YEAST INFECTION (Reported) Ketotifen Fumarate (Alaway) 0.025 % (0.035 %) DROPS 1 GTT OPH BID ALLERGIC CONJUNCTIVITIS Triage Note: PER PT 2ND TIME WITH FACIAL SWELLING AND ITCHY EYES AFTER EATING KEN SAUCE. 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 Triage Nurses Notes Reviewed? yes : No Patient currently breastfeeds: No HPI: Patient was eating pastel [place] when suddenly her eyes began to swell up and her throat is scratchy. Patient took Benadryl and then came into the emergency department for evaluation. Patient states that her eyes feel itchy. There is no difficulty breathing or swallowing. There is no nausea or vomiting. There is no pain. Past History Travel History Traveled to [place] past 21 day No Medical History Any Pertinent Medical History? 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 Paternal grandmother (Breast cancer). Hx Contributory? No Review of Systems Review of Systems Constitutional: Reports: no symptoms. EENTM: Reports: see HPI. Respiratory: Reports: no symptoms. Cardiovascular: Reports: no symptoms. GI: Reports: no symptoms. Genitourinary: Reports: no symptoms. Musculoskeletal: Reports: no symptoms. Skin: Reports: no symptoms. Neurological/Psychological: Reports: no symptoms. Hematologic/Endocrine: Reports: no symptoms. Immunologic/Allergic: Reports: no symptoms. All Other Systems: Reviewed and Negative Physical Exam Physical Exam General Appearance: well developed/nourished, alert, awake, mild distress Head: atraumatic Eyes: Bilateral: PERRL, EOMI, other (EYELID SWELLING). Ears, Nose, Throat: normal pharynx, normal ENT inspection, hearing grossly normal, NO EDEMA Neck: normal inspection, supple, NO STRIDOR Respiratory: normal breath sounds, chest non-tender, no respiratory distress, lungs clear Cardiovascular: regular rate/rhythm, normal peripheral pulses Gastrointestinal: normal bowel sounds, soft, non-tender Back: normal inspection Extremities: normal inspection, normal range of motion, no edema Neurologic/Psych: awake, alert, oriented x 3, normal mood/affect Lymphatic: no anterior cervical cynthia Progress Differential Diagnosis: allergic reaction, anaphylaxis, angioedema Plan of Care: Current Medications Sig/Celestina Start time Last Medication Dose Stop Time Status Admin Famotidine 20 MG ONCE ONE 04/19 2115 UNVr (Pepcid) 04/19 2116 Methylprednisolone 125 MG ONCE ONE 04/19 2115 UNVr (Solu Medrol) 04/19 2116 Comments: PT IS FEELING MUCH BETTER Departure Departure Disposition: HOME OR SELF CARE Condition: Stable Clinical Impression Primary Impression: Allergic reaction Qualifiers: Encounter type: initial encounter Qualified Code: T78.40XA - Allergy, unspecified, initial encounter Referrals: PATIENT HAS NO PRIMARY CARE DR (PCP/Family) Additional Instructions: RETURN IF SYMPTOMS WORSEN OR FOR ANY CONCERNS Departure Forms: Customer Survey General Discharge Information Prescriptions: Current Visit Scripts Prednisone 1 TAB PO DAILY #30 TAB TAKE 4 TABS FOR 3 DAYS THEN TAKE 3 TABS FOR 3 DAYS THEN TAKE 2 TABS FOR 3 DAYS THEN TAKE 1 TAB FOR 3 DAYS Critical Care Note Critical Care Note Critical Care Time: mins: (45 MIN)
[2017-04-19 22:15] VITALS: BP 132/65
[2017-04-19] MEDS ORDERED: DIFLUCAN150 M1 PO (22:31)
[2017-04-19] MEDS ORDERED: PREDNISONE10 M2 PO (22:37)
== END 2017-04-19 22:50 ==
LOC: ERH 21:03
DX: T78.40XA Allergy, unspecified, initial encounter (principal)
CPT/HCPCS: 96374; 96375; J2930

== ENCOUNTER 2017-04-28 12:42 | Emergency (ER) | payer OTHER ==
[~2017-04-28] VITALS: Ht 147.3 cm; Wt 49.9 kg
[~2017-04-28 12:42] MED LIST changes: +DIFLUCAN150 M1 PO; +PREDNISONE10 M2 PO
[2017-04-28 12:45] VITALS: BP 102/66
[2017-04-28 14:54] LABS: ABSOLUTE BASOPHIL COUNT 0 /CUMM (0.0-0.2); ABSOLUTE EOSINOPHIL COUNT 0.2 /CUMM (0.0-0.7); ABSOLUTE GRANULOCYTE CT 9.2 /CUMM (1.4-6.5); ABSOLUTE LYMPH COUNT 1.3 /CUMM (1.2-3.4); ABSOLUTE MONOCYTE COUNT 0.7 /CUMM (0.10-0.60); BASOPHIL % 0.2 % (0.0-2.0); EOSINOPHIL % 1.8 % (0-5); GRANULOCYTE % 80.3 % (42.2-75.2); HEMATOCRIT 40.6 % (37-47); MEAN CORPUSCULAR HGB 28.4 PG (27.0-31.0); MEAN CORPUSCULAR VOLUME 86.2 FL (81.0-99.0); MEAN PLATELET VOLUME 9.1 FL (7.4-10.4); PLATELET COUNT 189 /CUMM (130-400); RBC DISTRIBUTION WIDTH 14.1 % (11.5-14.5); RED BLOOD CELL CT 4.71 /CUMM (4.20-5.40); WHITE BLOOD CELL COUNT 11.4 /CUMM (4.8-10.8)
== END 2017-04-28 15:25 | disposition admitted as inpatient to this hospital (09) ==
LOC: ERH 12:42
PROVIDERS: Emergency Medicine
DX: R10.31 Right lower quadrant pain (principal); R11.2 Nausea with vomiting, unspecified
CPT/HCPCS: 81025; 99281

== ENCOUNTER 2018-03-09 12:30 | Emergency (ER) | payer OTHER ==
[~2018-03-09] VITALS: Ht 147.3 cm; Wt 68.0 kg
[~2018-03-09 12:30] MED LIST changes: +DICLEGIS DR 101 EACH
[2018-03-09 13:09] VITALS: BP 109/68
[2018-03-09 13:29] LABS: ABSOLUTE BASOPHIL COUNT 0 /CUMM (0.0-0.2); ABSOLUTE EOSINOPHIL COUNT 0.4 /CUMM (0.0-0.7); ABSOLUTE GRANULOCYTE CT 8.5 /CUMM (1.4-6.5); ABSOLUTE LYMPH COUNT 1.6 /CUMM (1.2-3.4); BASOPHIL % 0.3 % (0.0-2.0); EOSINOPHIL % 3.3 % (0-5); GRANULOCYTE % 73.2 % (42.2-75.2); HEMATOCRIT 32.1 % (37-47); MEAN CORPUSCULAR HGB 29.4 PG (27.0-31.0); MEAN CORPUSCULAR HGB CONC 33.8 G/DL (33.0-37.0); MEAN CORPUSCULAR VOLUME 86.8 FL (81.0-99.0); MEAN PLATELET VOLUME 8.6 FL (7.4-10.4); PLATELET COUNT 172 /CUMM (130-400); RBC DISTRIBUTION WIDTH 13.2 % (11.5-14.5); RED BLOOD CELL CT 3.69 /CUMM (4.20-5.40); WHITE BLOOD CELL COUNT 11.6 /CUMM (4.8-10.8)
--- NOTE | 2018-03-09 16:47 | ED CARDIAC/CP/PALPITATIONS ---
History of Present Illness General Chief Complaint: Chest Pain Stated Complaint: SIB PCP, CP AND AB PAIN, 25 WEEKS PREG Source: patient Exam Limitations: no limitations Vital Signs & Intake/Output Vital Signs & Intake/Output Vital Signs Date Time Temp Pulse Resp B/P B/P Pulse O2 O2 Flow FiO2 Mean Ox Delivery Rate 03/09 1309 97.6 97 16 109/68 96 Room Air Allergies Coded Allergies: nut - unspecified (Severe, ANAPHYLAXIS 04/13/17) peanut (Severe, ANAPHYLAXIS 04/13/17) Uncoded Allergies: ENVIRONMENTAL ALLERGIES (ALLERGIES TRIGGER ASTHMA 05/15/16) Reconcile Medications Albuterol Sulfate (Proair Hfa) 90 MCG HFA.AER.AD 2 PUF INH Q4-6 PRN PRN asthma Albuterol Sulfate 2.5 MG/3 ML (0.083 %) VIAL.NEB 1 Vial INH/MARVA Q4P PRN wheezing Budesonide/Formoterol Fumarate (Symbicort 80-4.5 Mcg Inhaler) 80 MCG-4.5 MCG/ ACTUATION HFA.AER.AD 2 PUF INH BID asthma Doxylamine/Pyridoxine HCl (Kian Downey 10-10 MG Tablet) 10 MG-10 MG TABLET. NAUSEA/VOMITING (Reported) Fluconazole (Diflucan) 150 MG TABLET 1 TAB PO ONCE YEAST INFECTION (Reported) Ketotifen Fumarate (Alaway) 0.025 % (0.035 %) DROPS 1 GTT OPH BID ALLERGIC CONJUNCTIVITIS Prednisone 10 MG TABLET 1 TAB PO DAILY ALLERGIC REACTION TAKE 4 TABS FOR 3 DAYS THEN TAKE 3 TABS FOR 3 DAYS THEN TAKE 2 TABS FOR 3 DAYS THEN TAKE 1 TAB FOR 3 DAYS Triage Note: 22 Y/O FEMALE C/O 1 WEEK HISTORY R SIDED CHEST PAIN AND R SIDED UPPER AND LOWER ABDOMINAL PAIN; CHEST PAIN CONSTANT SINCE ONSET AND ABDOMINAL PAIN INTERMITTENT. PT DENIES N/V/D. DENIES URINARY SYMPTOMS. +NON PRODUCTIVE COUGH PER PT. HX ASTHMA AND FEELS SOB, "WHEN I FEEL SOB, IT FEELS LIKE MY ASTHMA". DENIES VAGINAL BLEEDING OR SPOTTING. PT CURRENTLY 25 WEEKS , EDC 07/01/18; OB DR WALKER. . SPOKE WITH SHANTEL IN [facility] - PT TO STAY IN ED FOR EVAL. [facility] CAN BE CALLED BACK FOR FHT'S WHEN PT IS IN ROOM Triage Nurses Notes Reviewed? yes : Yes Patient currently breastfeeds: No HPI: Patient presents for evaluation of a constant right sided chest pain nonproductive cough and right-sided abdominal pain during . Pain began about 1 week ago. In addition patient is having an intermittent right-sided abdominal pain. She was asked by her physician to be evaluated in the emergency department. Past History Travel History Traveled to [place] past 21 day No Medical History Any Pertinent Medical History? 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 Paternal grandmother (Breast cancer). Hx Contributory? No Review of Systems Review of Systems Constitutional: Reports: no symptoms. EENTM: Reports: no symptoms. Respiratory: Reports: no symptoms. Cardiovascular: Reports: no symptoms. GI: Reports: no symptoms. Genitourinary: Reports: no symptoms. Musculoskeletal: Reports: no symptoms. Skin: Reports: no symptoms. Neurological/Psychological: Reports: no symptoms. Hematologic/Endocrine: Reports: no symptoms. Immunologic/Allergic: Reports: no symptoms. All Other Systems: Reviewed and Negative Physical Exam Physical Exam Cardiovascular: regular rate/rhythm (SEE BELOW) Comments: Due to severe emergency department volume patient was evaluated in triage as the patient notified ED staff that she would leave, exam is therefore limited Gen.: Well-nourished, well-developed, no acute respiratory distress. Head: Normocephalic, atraumatic. Eyes: Normal inspection bilaterally Ears: Normal inspection bilaterally Nose: Normal inspection Throat/mouth : Moist mucosa Neck: Supple, full range of motion, no goiter Lungs: Quiet respirations Back: Normal range of motion Extremities: Normal range of motion grossly, no cyanosis clubbing or edema of the upper extremities Neurologic: Cranial nerves grossly intact, speech is clear Skin: warm and dry Psychiatric: Calm, cooperative, no apparent delusions or hallucinations Core Measures ACS in differential dx? No CVA/TIA Diagnosis No Sepsis Present: No Sepsis Focused Exam Completed? No Progress Differential Diagnosis: costochondritis, musculoskeletal pain, myocarditis, pericarditis, pneumonia, pneumothorax, pulmonary embolism Plan of Care: Orders Procedure Date/time Status Add-on Test (ER Only) 03/09 1410 Active D-DIMER 03/09 1322 Complete TROPONIN LEVEL 03/09 1317 Complete MAGNESIUM 03/09 1317 Complete LIPASE 03/09 1317 Complete COMPREHENSIVE METABOLIC PANEL 03/09 1317 Complete CBC WITHOUT DIFFERENTIAL 03/09 1317 Complete EKG 03/09 1232 Active Laboratory Tests 03/09/18 1322: Anion Gap 7, Estimated GFR > 60, BUN/Creatinine Ratio 13.3, Glucose 89, Calcium 8.6, Magnesium 1.6, Total Bilirubin 0.4, AST 25, ALT 31, Alkaline Phosphatase 44 , Troponin I < 0.01, Total Protein 6.1 L, Albumin 3.1 L, Globulin 3.0, Albumin /Globulin Ratio 1.0 L, Lipase 127, D-Dimer High Sensitivty 334 H, CBC w Diff NO MAN DIFF REQ, RBC 3.69 L, MCV 86.8, MCH 29.4, MCHC 33.8, RDW 13.2, MPV 8.6, Gran % 73.2, Lymphocytes % 14.2 L, Monocytes % 9.0, Eosinophils % 3.3, Basophils % 0.3, Absolute Granulocytes 8.5 H, Absolute Lymphocytes 1.6, Absolute Monocytes 1.0 H, Absolute Eosinophils 0.4, Absolute Basophils 0 Initial ED EKG: none Comments: 03/09/2018 4:45:13 PM it is been brought to my attention that the patient has left the emergency department. She left without an update or discharge instructions. Apparently she did not notify the emergency Department staff of her departure. Departure Departure Disposition: LEFT AGAINST MEDICAL ADVICE Condition: Stable Clinical Impression Primary Impression: Atypical chest pain Secondary Impressions: Nonspecific abdominal pain, Referrals: Jannette Rodríguez APRN (PCP/Family) Departure Forms: Customer Survey General Discharge Information Critical Care Note Critical Care Note Critical Care Time: non-applicable
[2018-05-22] MEDS ORDERED: EPIPEN 2-P0.3 MG/0.3 IM (18:37)
== END 2018-03-09 17:02 | disposition left against medical advice (07) ==
LOC: ERH 12:30
PROVIDERS: Emergency Medicine
DX: O26.92 Pregnancy related conditions, unspecified, second trimester (principal); R07.89 Other chest pain; R10.11 Right upper quadrant pain; Z3A.25 25 weeks gestation of pregnancy
CPT/HCPCS: 93005; 93010

== ENCOUNTER 2018-03-25 12:23 | Emergency (ER) | payer OTHER ==
[~2018-03-25] VITALS: Ht 147.3 cm; Wt 68.0 kg
[2018-03-25 12:25] VITALS: BP 125/80
--- NOTE | 2018-03-25 12:41 | ED GI/GU/ABDOMINAL COMPLAINT ---
History of Present Illness General Chief Complaint: General Adult Stated Complaint: BURNING WITH URINATION Vital Signs & Intake/Output Vital Signs & Intake/Output Vital Signs Date Time Temp Pulse Resp B/P B/P Pulse O2 O2 Flow FiO2 Mean Ox Delivery Rate 03/25 1225 97.1 98 18 125/80 98 Room Air Room Air Allergies Coded Allergies: nut - unspecified (Severe, ANAPHYLAXIS 04/13/17) peanut (Severe, ANAPHYLAXIS 04/13/17) Uncoded Allergies: ENVIRONMENTAL ALLERGIES (ALLERGIES TRIGGER ASTHMA 05/15/16) Reconcile Medications Albuterol Sulfate (Proair Hfa) 90 MCG HFA.AER.AD 2 PUF INH Q4-6 PRN PRN asthma Albuterol Sulfate 2.5 MG/3 ML (0.083 %) VIAL.NEB 1 Vial INH/MARVA Q4P PRN wheezing Budesonide/Formoterol Fumarate (Symbicort 80-4.5 Mcg Inhaler) 80 MCG-4.5 MCG/ ACTUATION HFA.AER.AD 2 PUF INH BID asthma Doxylamine/Pyridoxine HCl (Kian Downey 10-10 MG Tablet) 10 MG-10 MG TABLET. NAUSEA/VOMITING (Reported) Fluconazole (Diflucan) 150 MG TABLET 1 TAB PO ONCE YEAST INFECTION (Reported) Ketotifen Fumarate (Alaway) 0.025 % (0.035 %) DROPS 1 GTT OPH BID ALLERGIC CONJUNCTIVITIS Prednisone 10 MG TABLET 1 TAB PO DAILY ALLERGIC REACTION TAKE 4 TABS FOR 3 DAYS THEN TAKE 3 TABS FOR 3 DAYS THEN TAKE 2 TABS FOR 3 DAYS THEN TAKE 1 TAB FOR 3 DAYS Triage Note: PT TO ED WITH C/O URINARY BURINING PAIN X 2 DAYS, ALSO STATING "HAVEN'T FELT THE BABY MOVE TODAY, JUST WANT TO GET CHECKED OUT". PT 27 WEEKS G 1 P 0, DUE DATED 06/23/18. PT DENIES VAGINAL CRAMPING/PAIN OR BLEEDING, SPOKE WITH [facility] NURSE BENJI FUNES TO BE SEEN HERE, AND WILL SEND SOMEONE OVER FOR FHT'S. Triage Nurses Notes Reviewed? 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 Paternal grandmother (Breast cancer). Progress Plan of Care: Orders Procedure Date/time Status URINALYSIS 03/25 124 Active COMPREHENSIVE METABOLIC PANEL 03/25 1240 Active CBC WITHOUT DIFFERENTIAL 03/25 1240 Active Departure Departure Condition: Stable Referrals: Jannette Rodríguez APRN (PCP/Family) Departure Forms: Customer Survey General Discharge Information
== END 2018-03-25 13:57 | disposition admitted as inpatient to this hospital (09) ==
LOC: ERH 12:23
DX: R30.0 Dysuria (principal)

== ENCOUNTER 2018-06-21 02:10 | Inpatient (IN) | payer OTHER ==
[~2018-06-21] VITALS: Ht 142.2 cm; Wt 72.6 kg
[~2018-06-21 02:10] MED LIST changes: +EPIPEN 2-P0.3 MG/0.3 IM
[2018-06-21 03:05] LABS: ABSOLUTE BASOPHIL COUNT 0 /CUMM (0.0-0.2); ABSOLUTE EOSINOPHIL COUNT 0.1 /CUMM (0.0-0.7); ABSOLUTE LYMPH COUNT 1.8 /CUMM (1.2-3.4); ABSOLUTE MONOCYTE COUNT 0.9 /CUMM (0.10-0.60); BASOPHIL % 0.2 % (0.0-2.0); GRANULOCYTE % 64.1 % (42.2-75.2); HEMATOCRIT 32.7 % (37-47); MEAN CORPUSCULAR HGB 26.1 PG (27.0-31.0); MEAN CORPUSCULAR HGB CONC 33.3 G/DL (33.0-37.0); MEAN CORPUSCULAR VOLUME 78.5 FL (81.0-99.0); MEAN PLATELET VOLUME 9.2 FL (7.4-10.4); PLATELET COUNT 185 /CUMM (130-400); RBC DISTRIBUTION WIDTH 14.4 % (11.5-14.5); RED BLOOD CELL CT 4.17 /CUMM (4.20-5.40); WHITE BLOOD CELL COUNT 7.9 /CUMM (4.8-10.8)
--- NOTE | 2018-06-21 06:30 | History & Physical ---
General Information and HPI MD Statement: I have seen and personally examined MICHAEL ALVARADO and documented this H&P. The patient is a 22 year old female at [39] weeks and [5] days gestation who presented with a chief complaint of [LOF]. Source of Information: patient Exam Limitations: no limitations History of Present Illness: 22 yo, 39 5/7wks, c/o LOF since 12:50AM, as per pt, she felt gush, and fluid came down her leg, ctxs, no VB, reports GFM, amnisure positive. care started at 9 wks, uncomplicated thus far. GBS positive Allergies/Medications Allergies: Coded Allergies: nut - unspecified (Severe, ANAPHYLAXIS 04/13/17) peanut (Severe, ANAPHYLAXIS 04/13/17) Uncoded Allergies: ENVIRONMENTAL ALLERGIES (ALLERGIES TRIGGER ASTHMA 05/15/16) Home Med list Albuterol Sulfate (Proair Hfa) 90 MCG HFA.AER.AD 2 PUF INH Q4-6 PRN PRN asthma Albuterol Sulfate 2.5 MG/3 ML (0.083 %) VIAL.NEB 1 Vial INH/MARVA Q4P PRN wheezing Budesonide/Formoterol Fumarate (Symbicort 80-4.5 Mcg Inhaler) 80 MCG-4.5 MCG/ ACTUATION HFA.AER.AD 2 PUF INH BID asthma Doxylamine/Pyridoxine HCl (Kian Downey 10-10 MG Tablet) 10 MG-10 MG TABLET. NAUSEA/VOMITING (Reported) Epinephrine (Epipen 2-Boris) 0.3 MG/0.3 ML AUTO.INJCT 1 INJ IM PRN PRN severe allergy Fluconazole (Diflucan) 150 MG TABLET 1 TAB PO ONCE YEAST INFECTION (Reported) Ketotifen Fumarate (Alaway) 0.025 % (0.035 %) DROPS 1 GTT OPH BID ALLERGIC CONJUNCTIVITIS Prednisone 10 MG TABLET 1 TAB PO DAILY ALLERGIC REACTION TAKE 4 TABS FOR 3 DAYS THEN TAKE 3 TABS FOR 3 DAYS THEN TAKE 2 TABS FOR 3 DAYS THEN TAKE 1 TAB FOR 3 DAYS Compliance With Home Meds: GOOD Past History dealer card room History : 2 Para: 0 Last Menstrual Period: unknown Estimated Delivery Date: 06/23/2018 Past dealer card room History: non-contributory Medical History Neurological: NONE EENT: allergies Cardiovascular: NONE Respiratory: asthma Gastrointestinal: NONE Hepatic: NONE Renal: NONE Musculoskeletal: NONE Psychiatric: anxiety Endocrine: NONE Blood Disorders: NONE Cancer(s): NONE 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 Paternal grandmother (Breast cancer). Psychosocial History Who Do You Live With? parent Primary Language: Chadian Smoking Status: Never Smoked ETOH Use: denies use Illicit Drug Use: denies illicit drug use Review of Systems Review of Systems Constitutional: Reports: no symptoms. EENTM: Reports: no symptoms. Cardiovascular: Reports: no symptoms. Respiratory: Reports: no symptoms. GI: Reports: no symptoms. Genitourinary: Reports: no symptoms. Musculoskeletal: Reports: no symptoms. Skin: Reports: no symptoms. Neurological/Psychological: Reports: no symptoms. Hematologic/Endocrine: Reports: no symptoms. Immunologic/Allergic: Reports: no symptoms. All Other Systems: Reviewed and Negative Exam & Diagnostic Data Last 24 Hrs of Vital Signs/I&O Intake & Output 06/21 0800 06/21 0000 06/20 1600 Intake Total Output Total Balance Patient 72.575 kg Weight Obstetric Exam Wgt Gained During : 46 lbs Pelvimetry: seems adequate Dilation (cm): 1 Effacement (%): 50 Station: -3 Membranes: SROM Fluid: clear Fundal Height (cm): 39 Multiple Gestation? No Contractions: occasional #1 - FHR Baseline: 150 Category: 1 Estimated Weight: 3200g Presentation: vertex Patient for Induction? No Physical Exam: VSS General: NAD Abdomen: gravid, soft, nontender. Ext: DCT (-) Labs Blood Type & Rh: B positive Antibody Screen: negative Hct/Hgb & Platelets #1: 12.8/40.4%,[id number] Hct/Hgb & Platelets #2: 11.2/35.8%,PLT [id number] Rubella: immune VDRL #1: negative VDRL #2: negative HbsAg: negative HIV #1: negative HIV #2 negative 1 Hr P Group B Strep: positive Initial Ultrasound: IUP at 9 wks Anatomy Ultrasound: nl Ultrasound for EFW: 6lb 14 ozz on 06/09/2018 Genetic Testing: nl Last 24 Hrs of Labs/Ferny: Laboratory Tests 06/21/18 0240: CBC w Diff NO MAN DIFF REQ, RBC 4.17 L, MCV 78.5 L, MCH 26.1 L, MCHC 33.3, RDW 14.4, MPV 9.2, Gran % 64.1, Lymphocytes % 22.8, Monocytes % 11.9 H, Eosinophils % 1.0, Basophils % 0.2, Absolute Granulocytes 5.0, Absolute Lymphocytes 1.8, Absolute Monocytes 0.9 H, Absolute Eosinophils 0.1, Absolute Basophils 0, Urine Color YEL, Urine Clarity CLDY H, Urine pH 6.0, Ur Specific [place] 1.020, Urine Protein NEG, Urine Ketones 40 H, Urine Nitrite NEG, Urine Bilirubin NEG, Urine Urobilinogen 4.0 H, Ur Leukocyte Esterase SMALL H, Ur Microscopic SEDIMENT EXAMINED, Urine RBC RARE, Urine WBC 5-10 H, Ur Epithelial Cells MANY H, Urine Bacteria MOD H, Urine Hemoglobin NEG, Urine Glucose NEG Assessment/Plan Assessment/Plan: 22yo, 39 5/7wks, SROM 1. admit pt, admission labs 2. abtibiotics for GBS prophylaxis 3. may consider pitocin augmentation if no spontaneous labor , plan of care d/w pt, she understand and agreed 4. will moniotor closely As Ranked By This Provider Problem List: 1. 2. SROM (spontaneous rupture of membranes) Core Measures Venous Thromboembolism VTE Risk Factors / No Mechanical VTE Prophylaxis d/t LowRisk-No Interven Req'd No VTE Pharm Prophylaxis d/t LowRisk-No Interven Req'd Attending MD Review Statement Attending Statement Attending MD Statement: examined this patient, discussed w/nursing
--- NOTE | 2018-06-21 10:18 | PN- OBGYN ---
Surgical Brief Attending Note Brief Attending Note: pt c/o increasing ctx, desires pain mgmt afeb, v/ss fht 140s moderate variability +acc no dec toco q 1-3 pit@ 8mu sve /-3 P0 39+5wks prom 1a, gbs pos on pcn, on pit, and maternal status reassuring -stadol -cont pit, pcn
--- NOTE | 2018-06-21 15:46 | PN- OBGYN ---
Surgical Brief Attending Note Brief Attending Note: pt c/o incr ctx and intermittent rectal pressure v/ss fht 140s mod variability + acc no dec toco q 2-4 sve 2-3 / 70 / -3, forewaters palpable pit @ 20mu -will give stadol, then arom forewaters
--- NOTE | 2018-06-21 17:22 | PN- OBGYN ---
Surgical Brief Attending Note Brief Attending Note: pt comfortable w/ epidural sve /-2, arom forewaters, clr cont current mgmt
--- NOTE | 2018-06-21 19:00 | PN- OBGYN ---
Surgical Brief Attending Note Brief Attending Note: pt w/ mild variable dec. sve 4/100/-2 w/ caput to -1. cont current mgmt.
--- NOTE | 2018-06-21 19:57 | PN- OBGYN ---
Surgical Brief Attending Note Brief Attending Note: c/o nausea, occ rectal pressure fht 130s moderate variability +acc occ narendra dec w/ ctx toco q 2-3 sve 5/100/-2 pit@20mu -cont pit -cont pcn -zofran
--- NOTE | 2018-06-22 07:00 | PN- OBGYN ---
Surgical Brief Attending Note Brief Attending Note: pt w/ intermittent rectal pressure overnight pit d/c'd after prolonged decel 80 - 100s x 4min after 3a. exam at that time by RN believed to be FD / -1. restarted after one hour per protocol, currently on 12mu, ctx q 4-5.fht 130s moderate variability +acc, occ mild narendra and early dec. sve lip on right w/ caput, vtx at 0 station. -will cont pit and titrate to q 2-3min -cont monitoring
--- NOTE | 2018-06-22 10:31 | PN- OBGYN ---
Surgical Brief Attending Note Brief Attending Note: pt is comfortable with epidural.no complaints. she was 9.5 cm dilated since 6:30 AM. She was given 25 mg Benadryl IV 1 for cervical edema. Cervix was reexamined still 9 cm dilated, with right side edema of the cervix. heart tracing category 1. Examined findings discussed with the patient, due to arrest of dilatation, recommended, risks, and benefits of primary section discussed with the patient, all questions answered, she understands and agreed. OR team informed, will prepare for OR
--- NOTE | 2018-06-22 13:32 | Operative Report ---
Operative/Inv Procedure Report Surgery Date: 06/22/18 Name of Procedure: Primary low transverse section Via Pfannenstiel Pre-Operative Diagnosis: 39 5/7wks, SROM, arrest of dilatation Post-Operative Diagnosis: Same Estimated Blood Loss: 405ML Surgeon/Peg Driver: Brock VALENZUELA,Christiano Miranda MD Anesthesia: EPIDURAL IV Fluids: Lactated Ringer Urine Output: 300 mL blood-tinged urine at the end the procedure Specimens: Placenta Complications: None Condition: Stable Operative Indication: 22-year-old G2 para 0 at 39 5/7 weeks intrauterine , spontaneous rupture of membranes for 36 hours, arrest of dilatation Operative/Procedure Note Note: The patient was taken to the operating room where epidural anesthesia was found to be adequate, she was then prepared and draped in usual sterile fashion in the dorsal supine position with a leftward tilt. A Pfannenstiel skin incision was then made with a scalpel and carried through to the underlying layer of the fascia with the Bovie. Fascia was incised in the midline and the incision extended laterally with the Bovie. The inferior aspect of this fascial incision was then grasped with a chelsea clamps, elevated, and underlying rectus muscle dissected off bluntly. Attention was then turned to the superior aspect of this fascial incision which, in a similar fashion, was grasped with Chelsea clamps, elevated and underlying rectus muscle dissected off bluntly. Rectus muscle was then in the midline, peritoneum identified and entered bluntly. The peritoneal incision was then extended superiorly and inferiorly with good visualization of the bladder, the bladder blade was then inserted and vesicouterine peritoneum identified, grasped with the pickups and entered sharply with Metzenbaum scissors. The incision was then extended laterally and the bladder flap created digitally. The bladder blade was then reinserted and the lower uterine segment incised in a transverse fashion with the scalpel. The incision was then extended laterally. The bladder blade was removed and 's head delivered atraumatically, loose nuchal cord 1 were reduced. The nose and mouth was suctioned with the suction bulb, and the cord clamped and cut. The infant was handed off to the waiting pediatricians. The placenta was then removed manually, the uterus exteriorized, and clear of all clots and debris. The uterine incision was then repaired with 0 Vicryl in a running locked fashion. Second layer of the same suture was used to obtain excellent hemostasis. The uterus was then returned to the abdomen. The gutters were clear of all clots, the peritoneum closed with 3-0 Vicryl. The rectus muscle was reapproximated with 2-0 Vicryl. Fascia was reapproximated with 0 Vicryl in a running fashion. Skin was closed with 4-0 Monocryl subcuticularly. The patient tolerated the procedure well, sponge lap and needle counts were correct 2. The patient was taken to recovery room in stable condition. Findings: Viable male in cephalic presentation, OP position, nuchal cord 1, thick meconium noted when entering the uterine cavity. Weigh 7 lbs. 10 oz., Apgars 9 and 9. Pediatrics present at delivery. Normal uterus, tubes and ovaries.
[2018-06-23 08:43] LABS: ABSOLUTE BASOPHIL COUNT 0 /CUMM (0.0-0.2); ABSOLUTE EOSINOPHIL COUNT 0 /CUMM (0.0-0.7); GRANULOCYTE % 80.4 % (42.2-75.2)
[2018-06-23 08:48] LABS: ABSOLUTE GRANULOCYTE CT 13.6 /CUMM (1.4-6.5); ABSOLUTE LYMPH COUNT 1.6 /CUMM (1.2-3.4); ABSOLUTE MONOCYTE COUNT 1.6 /CUMM (0.10-0.60); BASOPHIL % 0.2 % (0.0-2.0); EOSINOPHIL % 0.2 % (0-5); HEMATOCRIT 31.9 % (37-47); MEAN CORPUSCULAR HGB 26.6 PG (27.0-31.0); MEAN CORPUSCULAR HGB CONC 33.6 G/DL (33.0-37.0); MEAN CORPUSCULAR VOLUME 79.2 FL (81.0-99.0); MEAN PLATELET VOLUME 9.4 FL (7.4-10.4); PLATELET COUNT 190 /CUMM (130-400); RBC DISTRIBUTION WIDTH 14.5 % (11.5-14.5); RED BLOOD CELL CT 4.03 /CUMM (4.20-5.40)
[2018-06-23 08:50] LABS: WHITE BLOOD CELL COUNT 16.9 /CUMM (4.8-10.8)
--- NOTE | 2018-06-23 11:11 | PN- OBGYN ---
Surgical Brief Attending Note Brief Attending Note: POD 1 Resting in bed, [id number] with the baby. Good pain control. Ambulating. +void. Tolerating all POs. afebrile, VS normal Lips - pink and moist Neck - supple Abd - soft, NT Fundus - firm, NT Incision - C/D/I Perineum - dry Extr - benign A: stable s/p C/S for arrest of labor P: routine post-op care Patient requests circumcision for her son. Risks, benefits, purpose, and alternatives d/w patient, questions answered, and informed consent obtained.
--- NOTE | 2018-06-24 11:03 | PN- OBGYN ---
Surgical Brief Attending Note Brief Attending Note: POD 2 C/o gas pains, unable to move her bowels. No N&V. In cision pain controlled. Yesterday had a c/o intermittent sharp right shoulder pain, worse when laying down, then spontaneously resolves. No palpitations, chest pain, SOB, or orthopnea. afebrile, VS normal Lungs CTA, Cor RRR Abd - soft, NT Fundus - firm, NT Incision C/D/I Extr - benign A: probable referred shoulder pain from intraperitoneal fluid recovering well s/p C/S P: routine postop care circumcision today discharge home tomorrow
[2018-06-25] MEDS ORDERED: IBUPROFEN800 M1 PO (10:15)
[2018-06-25] MEDS ORDERED: LANOLIN TOP (10:15)
--- NOTE | 2018-06-25 10:24 | PN- OBGYN ---
Surgical Brief Attending Note Brief Attending Note: POD 3 Patient sitting up, dressed, ready to go home. She reports good pain control with Motrin/Percocet Lochia is scant/mild rubra. Ambulating, eating, voiding, +BM. Baby is latching well, they are happy with the circumcision. afebrile, VS normal Lips - moist, pink Neck - supple Lungs - goodair movement, no wheeze, Cor RRR Breasts - no inflammation or tenderness Abd - soft, NT Fundus - firm, NT, below U Incision - C/D/I Extr - benign A: stable s/p primary C/S for FTP P: home today, instructions reviewed, F/U in our office in 2 weeks for incision check restart daily PNV, drink plenty water Rxs given for Motrin and Percocet PRN C/S wound and circumcision care reviewed with patient and family.
== END 2018-06-25 11:30 | DRG 540 ==
LOC: CBCO 02:10 → GNO 02:15
PROVIDERS: Obstetrics & Gynecology
PROC: 10D00Z1 Extraction of Products of Conception, Low, Open Approach (ICD-10-PCS; principal; 2018-06-22)
DX: O76 Abnormality in fetal heart rate and rhythm complicating labor and delivery (principal); O62.1 Secondary uterine inertia; Z3A.39 39 weeks gestation of pregnancy; Z37.0 Single live birth; O69.81X0 Labor and delivery complicated by cord around neck, without compression, not applicable or unspecified; O99.824 Streptococcus B carrier state complicating childbirth; Z91.018 Allergy to other foods; Z91.010 Allergy to peanuts; Z91.048 Other nonmedicinal substance allergy status; Z90.49 Acquired absence of other specified parts of digestive tract
CPT/HCPCS: GNOP; GNOS; 36415; 81001; 84112; 87086; J0131; J1200; J1650; J2405; J3490; J7120